=== PATIENT | female | born 1965 | race Caucasian/White ===

== ENCOUNTER 2022-07-24 17:00 | Outpatient (CLI) | payer OTHER | END 2022-07-24 17:01 | disposition home or self-care (01) | LOC: CTENTCT 17:00 | PROVIDERS: ATTEND Otolaryngology Plastic Surgery within the Head & Neck | DX: J30.9 Allergic rhinitis, unspecified (principal) | CPT/HCPCS: 70486 ==

== ENCOUNTER 2023-05-24 11:17 | Day surgery (SDC) | payer OTHER ==
[2023-05-21 14:41] VITALS: BMI 28.3
[2023-05-24] MEDS ORDERED: Oxymetazoline HCl 0.05% (30 ML BOT) ONE ×2 (11:59→15:41)
[2023-05-24] MEDS ORDERED: Midazolam HCl 2 mg/2 ml Vial ONE (12:23)
[2023-05-24] MEDS ORDERED: Lidocaine 1% (PF) 30 ML VIAL ONE (15:30)
[2023-05-24] MEDS ORDERED: EPINEPHrine 1 MG/ML AMP ONE (15:30)
[2023-05-24] MEDS ORDERED: Bacitracin Zinc Ointment 30 gm TUBE ONE (15:41)
[2023-05-24] MEDS ORDERED: fentaNYL 50 mcg/mL 1 mL Vial ONE ×2 (15:44→17:18)
[2023-05-24] MEDS ORDERED: fentaNYL PF 100 MCG/2 ML SYRINGE ONE (15:44)
[2023-05-24] MEDS ORDERED: MINERAL OIL/WHITE PETROLATUM 3.5 GM TUBE ONE (15:48)
[2023-05-24] MEDS ORDERED: SUGAMMADEX SODIUM 200 MG/2 ML VIAL ONE (15:49)
== END 2023-05-24 18:22 | disposition home or self-care (01) ==
LOC: SDC 11:17
PROVIDERS: ATTEND Specialist
PROC: 09BL8ZZ Excision of Nasal Turbinate, Via Natural or Artificial Opening Endoscopic (ICD-10-PCS; principal; 2023-05-24)
PROC: 09BM8ZZ Excision of Nasal Septum, Via Natural or Artificial Opening Endoscopic (ICD-10-PCS; principal; 2023-05-24)
DX: J34.2 Deviated nasal septum (principal); J34.3 Hypertrophy of nasal turbinates; T78.40XA Allergy, unspecified, initial encounter; I10 Essential (primary) hypertension; G44.209 Tension-type headache, unspecified, not intractable; J32.9 Chronic sinusitis, unspecified; M26.609 Unspecified temporomandibular joint disorder, unspecified side; K21.9 Gastro-esophageal reflux disease without esophagitis; E03.9 Hypothyroidism, unspecified; Z79.890 Hormone replacement therapy; Z79.899 Other long term (current) drug therapy; Z90.89 Acquired absence of other organs; Z88.0 Allergy status to penicillin; Z88.1 Allergy status to other antibiotic agents; Z88.2 Allergy status to sulfonamides; Z88.5 Allergy status to narcotic agent
CPT/HCPCS: J0171; J2001; J2250; J3010